=== PATIENT | male | born 1985 | race African-American/Black ===

== ENCOUNTER 2018-06-27 08:01 | Emergency (ER) | payer SELFPAY ==
[~2018-06-27] VITALS: Ht 182.9 cm; Wt 101.0 kg
[2018-06-27 08:07] VITALS: BP 124/66
[2018-06-27] MEDS ORDERED: LIDOCAINE HCL/PF 1% 10 MG/ML 5ML VIAL IJ ONE (09:30)
[2018-06-27] MEDS ORDERED: BACITRACIN ZINC OINT UDPKT TOP ONE (09:30)
== END 2018-06-27 10:53 | disposition home or self-care (01) ==
LOC: ER 08:01
DX: L02.31 Cutaneous abscess of buttock (principal); F12.90 Cannabis use, unspecified, uncomplicated
CPT/HCPCS: 10060; 99283; J3490; Z7610